=== PATIENT | female | born 1955 | race Caucasian/White ===

== ENCOUNTER 2019-08-07 12:47 | Inpatient (IN) ==
[2019-08-07] MEDS ORDERED: HYDROmorphone INJ 0.5 MG/0.5 ML SYR IV STA (13:51)
[2019-08-07] MEDS ORDERED: ONDANSETRON INJ 2 MG/ML 2 ML VIAL IV STA (13:51)
[2019-08-07] MEDS ORDERED: FAMOTIDINE 20MG/5ML IV PUSH IV STA (13:51)
[2019-08-07] MEDS ORDERED: SODIUM CHLORIDE 0.9% 1000ML 1,000 ML IV SCH (14:00)
[2019-08-07 14:27] LABS: Basophils # (auto) 0.02 K/uL (0-0.2); Basophils % (auto) 0.2 %; Eosinophils # (auto) 0.06 K/uL (0-0.5); Eosinophils % (auto) 0.5 %; Hematocrit (blood only) 38.8 % (37-47); Hemoglobin 13.3 g/dL (12.0-16.0); Immature Granulocytes # (auto) 0.02 K/uL (0.00-0.02); Immature Granulocytes % (auto) 0.2 %; Lymphocytes # (auto) 0.72 K/uL (1.2-3.4); Lymphocytes % (auto) 6.5 %; Mean Corpuscular Hemoglobin 28.9 pg (25-34); Mean Corpuscular Hgb Conc 34.3 g/dL (32-36); Mean Corpuscular Volume 84.2 fL (80-100); Mean Platelet Volume 10.6 fL (7.4-10.4); Monocytes % (auto) 6.3 %; Neutrophils % (auto) 86.3 %; Platelet Count 285 K/uL (130-400); RDW Coefficient of Variation 12.9 % (11.5-14.5); RDW Standard Deviation 39.2 fL (36.4-46.3); Red Blood Count 4.61 M/uL (4.2-5.4); White Blood Count 11.12 K/uL (4.8-10.8)
[2019-08-07 14:54] LABS: Albumin Level 4.2 gm/dl (3.4-5.0); Calcium 9.1 mg/dl (8.5-10.1)
[2019-08-07 14:55] LABS: BUN Creatinine Ratio 10.5 (10-20); Creatinine Clr Calc Pharmacy 40.5 ml/min; Est GFR (African American) 29.8; Est GFR (Non-African American) 25.7
[2019-08-07] MEDS ORDERED: METOCLOPRAMIDE HCL INJ 5 MG/ML 2 ML VIAL IV ONE ×2 (14:57→16:31)
[2019-08-07 14:58] LABS: Albumin Globulin Ratio 1.3 (0.9-2); Bilirubin,Total 1.1 mg/dl (0.2-1); Globulin 3.2 gm/dl (2.5-4.0); Total Protein 7.4 gm/dl (6.4-8.2)
[2019-08-07 15:37] LABS: Appearance Urine Clear (Clear); Bilirubin Urine Negative (Negative); Blood Urine Negative (Negative); Color Urine Yellow; Glucose Urine UA Negative (Negative); Ketones Urine Negative (Negative); Leukocyte Esterase Urine Negative (Negative); Nitrite Urine Negative (Negative); Protein Urine Negative (Negative); Urobilinogen Urine Negative (Negative); pH Urine 5.5 (4.5-7.5)
--- NOTE | 2019-08-07 15:58 | CT Scan Report ---
CT abd pelvis wo con CT DOSE: 2056.08 mGy.cm HISTORY: Flank pain. Nausea. rlq pain, n/v TECHNIQUE: Multiaxial CT images of the abdomen and pelvis were performed without contrast. A dose lo wering technique was utilized adhering to the principles of ALARA. COMPARISON STUDY: 08/03/2019 FINDINGS: The lung bases are clear. Liver spleen and pancreas are unremarkable. Moderate right renal hydronephrosis and hydroureter. Left kidney is negative for hydronephrosis. Mild right hydroureter extending to the right ureteral pelvic junction. There appears to be a very po hugh seen 1.5 mm calculus at the right ureteral vesicle junction. The bowel pattern overall is nonobstructive. IMPRESSION: 1. Moderate right renal hydroureteronephrosis. 2. This appears to be secondary to a very poorly defined 1.5 mm right ureterovesical junction calculu s. 3. Study is otherwise unremarkable. The above report was generated using voice recognition software. It may contain grammatical, syntax or spelling errors. Electronically signed by: Ben Tyler M.D. 08/07/2019 3:56 PM
[2019-08-07] MEDS ORDERED: ACETAMINOPHEN 500 MG TAB PO STA (16:11)
[2019-08-07] MEDS ORDERED: ACETAMINOPHEN 1,000 MG/100 ML VIAL IV STA (16:31)
--- NOTE | 2019-08-07 16:54 | History & Physical Report ---
Date of Service August 07, 2019 Assessment & Plan (1) Right lower quadrant abdominal pain: Unclear etiology however, pain appears to be consistent with nephrolithiasis. Four days ago, the CT revealed a dilated right renal pelvis and trace surrounding inflammatory change possibly consistent with the passage of a calculus. Repeat CT today reveals evidence of a calculus again on the right side. Urinary tract infection has been ruled out with culture. She is feeling better with IV fluids. Continue tamsulosin. Urology consult. Continue supportive care. Keep n.p.o. for now until nausea and vomiting has subsided. (2) Kidney stone on right side: Plan as above. (3) Vomiting: Possibly secondary to uncontrolled pain. Other etiologies include but are not limited to an acute gastroenteritis, peptic ulcer disease. Of note, she did mention an episode of reddish liquid in her vomitus today. However, this was after drinking cranberry juice. She is hemodynamically stable with a stable H&H. She has risk factors for PUD and that she uses chronic naproxen twice daily. Will hold naproxen at this time, and hold any blood thinners including DVT prophylaxis. Will monitor for persistent red liquid in the vomitus and test with FOBT if appropriate at which point we can consider gastroenterology consult. For now, would continue supportive care as I do not believe this is consistent with hematemesis. (4) LENCHO (acute kidney injury): LENCHO likely secondary to prerenal azotemia in the setting of poor p.o. intake. Continue IV fluids and repeat BMP in the a.m. (5) Depression: Continue home citalopram. (6) Lupus: Recent flare reported. Patient states the flare includes skin rash and that she has had this for the past 3 weeks. She reports treating it with topical agents and states this is better. 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 PCP manages lupus. (7) DVT prophylaxis: SCDs-reconsider chemoprophylaxis once hematemesis ruled out completely Full code Dispo-pending resolution of intractable vomiting and improve pain control. Pina Carpio DO [facility] Hospitalist History of Present Illness Chief Complaint: abdominal pain Primary Care Provider: Diogenes Wang MD 64-year-old female presents with severe right lower quadrant pain that has been present for the past 4 to 5 days, associated with chills and of variable intensity. She was initially seen in the ER on 08/03 and thought to have a UTI. She was sent home on a course of Keflex. However the culture was negative and she was back in the ER on 08/05. At that time she was having intractable vomiting unable to keep any food or medication down in addition to persistent pain. She received 1 mg of IV Dilaudid and Zofran, feeling well enough to go home. She was sent home with Luz. She returns again this evening with persistent abdominal pain, vomiting and nausea. She has been unable to taking any food or water and is now becoming generally weak. She reports her last meal was Tuesday (5 days ago) and that her last BM was soft and formed and was this morning. She reported drinking cranberry juice earlier today and subsequently vomiting a dark red liquid a few hours later. She has had no vomiting since being on the floor. She feels the vomiting is in response to pain that is uncontrolled. In the ER she received Dilaudid 0.5 mg IV, famotidine 20 mg IV, Zofran 4 mg IV, 1 L of normal saline, Reglan 5 mg IV x2 doses. A repeat CT of h er abdomen pelvis revealed no evidence of obstruction with moderate right renal hydroureteronephrosis likely secondary to a poorly defined 1.5 mm right ureterovesical junction calculus. The clinical picture fits a kidney stone and she was admitted to the floor placed on normal saline at 150 cc an hour, started on tamsulosin and given additional antiemetics and pain medication. She is feeling better at this point. However, she is still concerned about trying food. Work-up incidentally revealed a normal lipase and normal LFTs. She reports her pain is approximately 4 out of 10. There is no radiation of the pain and there are no clear precipitating or alleviating factors aside from medications that are IV. Incidentally she does report having lupus and suffering a recent lupus flare for the last 3 weeks. Her lupus flares are skin rashes on her arms. She reports managing these with naproxen and skin lotions and feels that her current rash is improved. She also reports evidence of gross hematuria a couple of months ago for which she was referred to urology but has not been able to establish care. Allergies Allergy/AdvReac Type Severity Reaction Status Date / Time cat dander Allergy Intermediate SNEEZE, Verified 08/07/19 15:20 PUFFY EYES meperidine Allergy Intermediate LOOPY, Verified 08/07/19 15:20 VOMITING Home Medications Home Medications Medication Instructions Recorded Confirmed Type dicyclomine 20 mg PO TID #14 tab 08/03/19 08/07/19 Rx naproxen 500 mg PO BID PRN 08/03/19 08/07/19 History ondansetron HCl [Zofran] 4 mg PO Q6H PRN #14 tab 08/06/19 08/07/19 Rx citalopram 20 mg PO DAILY 08/07/19 08/07/19 History Past Med/Surg History Medical History Right lower quadrant abdominal pain (Acute) History of hysterectomy Acute low back pain (Acute) Right upper quadrant abdominal pain (Acute) Lupus Surgical History S/P HUEY-BSO History of appendectomy Family History Brother COPD (chronic obstructive pulmonary disease) Mother Diabetes Other No significant family history Social History Preferred Language: [place]uran Communication Ability: Effective Heel Varnisher Required: No Beliefs That Will Affect Care: None Current Living Situation: Family Other Information That Helps Us Care for You: No Feels Safe at Home: Yes Safety Concerns: Feels Safe At This Time Smoking Status: Never smoker Do You Dip or Chew Tobacco: No ; Second Hand Exposure: No ; Tobacco Cessation Education Requested by Patient: No Hx Alcohol Use: No Hx Substance Use: No Review of Systems Review of Systems: At least 10 systems were reviewed and negative except as indicated on HPI above. Physical Exam Physical Exam: CONSTITUTIONAL: obese, vitals as above, generally well- appearing EYES: normal conjunctivae, no scleral icterus ENT: MMM RESPIRATORY: clear to auscultation bilaterally, no crackles, rales or wheezes, normal respiratory effort CARDIOVASCULAR: regular rate and rhythm, 3/6 SAMM across precordium, no JVD, no peripheral edema GASTROINTESTINAL: normal bowel sounds, soft, nondistended, TTP in RLQ>RUQ. No CVA tenderness. MUSCULOSKELETAL: strength 5/5 throughout, head is normocephalic and atraumatic SKIN: warm and dry, +scaly erythematous rash on left distal arm on the extensor surface. NEUROLOGIC: No facial palsy, no dysarthria. CN 2-12 grossly intact, normal cognition, normal speech, no gross deficits. PSYCHIATRIC: alert cooperative and oriented to person, place and time. Results & Data Vital Signs (Past 12 Hours) Vital Signs Temp Pulse Pulse Resp BP BP Pulse Ox 08/07/19 16:24 66 19 168/85 H 97 08/07/19 14:48 67 18 188/101 H 98 08/07/19 14:28 98 08/07/19 12:50 36.8 C 84 20 174/86 H 97 Laboratory Results Short CBC 08/07/19 Range/Units 14:16 WBC 11.12 H (4.8-10.8) K/uL Hgb 13.3 (12.0-16.0) g/dL Hct 38.8 (37-47) % Plt Count 285 (130-400) K/uL BMP 08/07/19 14:16 Sodium 138 Potassium 4.0 Chloride 104 Carbon Dioxide 25 BUN 21 H Creatinine 1.98 H D Glucose 112 H Calcium 9.1 Liver Function 08/07/19 Range/Units 14:16 Total Bilirubin 1.1 H D (0.2-1) mg/dl AST 14 L (15-37) U/L ALT 12 (12-78) U/L Alkaline Phosphatase 102 (45-117) U/L Albumin 4.2 (3.4-5.0) gm/dl Urine 08/07/19 Range/Units 14:19 Urine Color Yellow Urine Appearance Clear (Clear) Urine pH 5.5 (4.5-7.5) Ur Specific Jacobson 1.020 (1.000-1.030) Urine Protein Negative (Negative) Urine Glucose (UA) Negative (Negative) Diagnostic Findings CT abd pelvis wo con CT DOSE: 2056.08 mGy.cm HISTORY: Flank pain. Nausea. rlq pain, n/v TECHNIQUE: Multiaxial CT images of the abdomen and pelvis were performed without contrast. A dose lowering technique was utilized adhering to the principles of ALARA. COMPARISON STUDY: 08/03/2019 FINDINGS: The lung bases are clear. Liver spleen and pancreas are unremarkable. Moderate right renal hydronephrosis and hydroureter. Left kidney is negative for hydronephrosis. Mild right hydroureter extending to the right ureteral pelvic junction. There appears to be a very poorly seen 1.5 mm calculus at the right ureteral vesicle junction. The bowel pattern overall is nonobstructive. IMPRESSION: 1. Moderate right renal hydroureteronephrosis. 2. This appears to be secondary to a very poorly defined 1.5 mm right ureterovesical junction calculus. 3. Study is otherwise unremarkable. _ PA CHEST RADIOGRAPH AND UPRIGHT AND SUPINE AP RADIOGRAPHS OF THE ABDOMEN CLINICAL HISTORY: Right lower quadrant abdominal pain. Evaluate for bowel obstruction. COMPARISON STUDY: CT of the abdomen and pelvis August 03, 2019. Chest radiograph June 27, 2011. FINDINGS: Lung volumes are normal. There is no pneumothorax or pleural effusion. Mild cardiomegaly is noted without evidence for pulmonary edema. Linea r left lung opacities suggest atelectasis or scarring. There is no evidence for a bowel obstruction. No urinary calculi are identified. Pelvic calcifications reflect phleboliths. IMPRESSION: 1. No free air or evidence of bowel obstruction. 2. No acute cardiopulmonary findings. Code Status & VTE Plan Code Status full (1) Vomiting Nausea presence: with nausea Vomiting Intractability: non-intractable Vomiting type: unspecified Qualified Code(s): R11.2 - Nausea with vomiting, unspecified
[2019-08-07] MEDS: ONDANSETRON INJ 2 MG/ML 2 ML VIAL IV PRN (18:46)
[2019-08-07] MEDS: SODIUM CHLORIDE 0.9% 1000ML 1,000 ML IV SCH (18:46)
[2019-08-07] MEDS: TAMSULOSIN HCL 0.4 MG CAP PO SCH (20:05)
[2019-08-07] MEDS ORDERED: MoRPHine SULFATE 4 MG/ML 1 ML CARP\\VIAL IV PRN (21:16)
--- NOTE | 2019-08-07 21:18 | Emergency Department Note ---
Entered by Gricelda Paul acting as a scribe for History of Present Illness General Chief complaint: Vomiting Stated complaint: ABD PAIN, VOMITING, NAUSEA History of Present Illness Provider complaint: right lower abdominal pain Onset (ago): day(s) 4 Location: abdomen (lower) and right Pain Consistency: + other (episode) Maximum Pain Intensity: 8 Relieved By: + none Associated symptoms: + denies other symptoms, + nausea/vomiting, + weakness and + other (diarrhea 4 days ago that is now resolved, limited oral intake, has not been able to keep down nausea medication, seen in ED twice and by PCP once in the past 4 days ) The patient is a 64 year old female who presents to the ED with complaints of an episode of right lower abdominal pain that started 4 days ago. The patient state s that she initially had diarrhea 4 days ago, but it has since resolved. The patient notes that she now has nausea, vomiting, generalized weakness and limited oral intake. The patient notes that she has not been able to keep anything down since yesterday, including her nausea medications. The patient states that nothing is relieving her of these symptoms. The patient states that she was seen in the ED twice and by her PCP once in the past 4 days. Home Medications Home Medications Medication Instructions Recorded Confirmed Type cephalexin [Keflex] 500 mg PO BID 5 Days #10 cap 08/03/19 08/07/19 Rx dicyclomine 20 mg PO TID #14 tab 08/03/19 08/07/19 Rx naproxen 500 mg PO BID PRN 08/03/19 08/07/19 History ondansetron HCl [Zofran] 4 mg PO Q6H PRN #14 tab 08/06/19 08/07/19 Rx Allergies Allergy/AdvReac Type Severity Reaction Status Date / Time cat dander Allergy Intermediate SNEEZE, Verified 08/07/19 15:20 PUFFY EYES meperidine Allergy Intermediate LOOPY, Verified 08/07/19 15:20 VOMITING Past Med/Surg History Social History Preferred Language: [place] Communication Ability: Effective Loom Blower Required: No Beliefs That Will Affect Care: None Current Living Situation: Family Other Information That Helps Us Care for You: No Feels Safe at Home: Yes Safety Concerns: Feels Safe At This Time Smoking Status: Never smoker Do You Dip or Chew Tobacco: No ; Second Hand Exposure: No ; Tobacco Cessation Education Requested by Patient: No Hx Alcohol Use: No Hx Substance Use: No Review of Systems See HPI for pertinent positives & negatives. and A total of 10 systems reviewed and were otherwise negative Physical Exam Vital Signs Vital Signs - 24 hr 08/07/19 12:50 08/07/19 14:28 08/07/19 14:48 Temperature 36.8 C Temperature Source Oral Sepsis Recent Fever Within 48 Hours No Sepsis New/Unexplained Change in Mental Status No Sepsis Action Taken by Nursing No Action Required Pulse Rate 84 Pulse Rate [Apical] 67 Respiratory Rate 20 18 Respiratory Effort / Characteristics Blood Pressure 174/86 H Blood Pressure [Left Arm] 188/101 H Blood Pressure Mean 115 Blood Pressure Mean [Left Arm] 130 Blood Pressure Position [Left Arm] Pulse Oximetry 97 98 98 Oxygen Delivery Method Room Air Room Air 08/07/19 16:24 Temperature Temperature Source Sepsis Recent Fever Within 48 Hours Sepsis New/Unexplained Change in Mental Status Sepsis Action Taken by Nursing Pulse Rate Pulse Rate [Apical] 66 Respiratory Rate 19 Respiratory Effort / Characteristics Non-Labored Spontaneous Blood Pressure Blood Pressure [Left Arm] 168/85 H Blood Pressure Mean Blood Pressure Mean [Left Arm] 112 Blood Pressure Position [Left Arm] Lying Pulse Oximetry 97 Oxygen Delivery Method Room Air GENERAL: Awake, alert, weak and fatigued-appearing HENT: Normocephalic, atraumatic. Oropharynx unremarkable. EYES: Normal conjunctiva. Sclera non-icteric. NECK: Supple. No nuchal rigidity. RESPIRATORY: Clear to auscultation. No wheezes. Normal respiratory effort. CARDIAC: Normal rate. Normal rhythm. Extremities warm and well perfused. GI: Soft, non-distended. RLQ tenderness to palpation. No rebound or guarding. RECTAL: Deferred. MUSCULOSKELETAL: Atraumatic. Chest examination reveals no tenderness. LOWER EXTREMITIES: Calves are equal size bilaterally and non-tender. No edema NEURO: Normal sensorium. No sensory or motor deficits noted. No facial droop. SKIN: Warm and dry. No rash or jaundice noted. Course 1355: Past medical records reviewed. The patient was evaluated in room C4. A complete history and physical exam was performed. 1603: I updated the patient of the test results and plan for admission. She verbally agrees and understands. 1609: I discussed the patient case with SCOOBY Le. She will accept the patient for Dr. Irene Caceres Hospitalist. They will evaluate the patient for further management. Consultations Consultation #1: I discussed the patient case with SCOOBY Le. She will accept the patient for Dr. Irene Caceres Hospitalist. They will evaluate the patient for further management. Time: 16:09 Administered Medications Sodium Chloride (Nss 1000ml) 1,000 mls @ 150 mls/hr IV .Q6H40M ELLA Stop: 09/06/19 18:00 Last Admin: 08/07/19 18:46 Dose: 150 mls/hr Documented by: [id number] Ondansetron HCl (Zofran) 4 mg IV Q6H PRN PRN Reason: Nausea Stop: 09/06/19 18:00 Last Admin: 08/07/19 18:46 Dose: 4 mg Documented by: [id number] Tamsulosin HCl (Flomax) 0.4 mg PO HS ELLA Stop: 09/06/19 20:59 Last Admin: 08/07/19 20:05 Dose: 0.4 mg Documented by: [id number] Discontinued Medications Acetaminophen (Tylenol) 1,000 mg PO NOW STA Stop: 08/07/19 16:12 Last Admin: 08/07/19 16:28 Dose: Not Given Documented by: [id number] Famotidine (Pepcid 20mg Iv Push) 20 mg IV ONE STA Stop: 08/07/19 13:52 Last Admin: 08/07/19 14:23 Dose: 20 mg Documented by: [id number] Hydromorphone HCl (Dilaudid) 0.5 mg IV NOW STA Stop: 08/07/19 13:52 Last Admin: 08/07/19 14:23 Dose: 0.5 mg Documented by: [id number] Sodium Chloride (Nss 1000ml) 1,000 mls @ 999 mls/hr IV .Q1H1M ELLA Stop: 08/07/19 15:00 Last Infusion: 08/07/19 15:42 Dose: 0 mls/hr Documented by: [id number] Admin: 08/07/19 14:23 Dose: 999 mls/hr Documented by: [id number] Acetaminophen (Ofirmev) 1,000 mg in 100 mls @ 400 mls/hr IV NOW STA Stop: 08/07/19 16:45 Last Infusion: 08/07/19 17:21 Dose: 0 mls/hr Documented by: [id number] Admin: 08/07/19 16:35 Dose: 400 mls/hr Documented by: [id number] Metoclopramide HCl (Reglan) 5 mg IV ONE ONE Stop: 08/07/19 14:58 Last Admin: 08/07/19 15:02 Dose: 5 mg Documented by: [id number] Metoclopramide HCl (Reglan) 5 mg IV ONE ONE Stop: 08/07/19 16:32 Last Admin: 08/07/19 16:35 Dose: 5 mg Documented by: [id number] Ondansetron HCl (Zofran) 4 mg IV NOW STA Stop: 08/07/19 13:52 Last Admin: 08/07/19 14:23 Dose: 4 mg Documented by: [id number] Medical Decision Making Differential Diagnosis Differential diagnosis: Etiologies such as biliary colic, cholecystitis, hepatitis, perihepatitis, pancreatitis, cardiac disease, pancreatitis, gastritis, peptic ulcer disease, appendicitis, ovarian cyst, ovarian torsion, ectopic , pelvic inflammatory disease, cystitis, diverticulitis, mesenteric ischemia, inflammatory bowel disease, ileus, bowel obstruction, aortic pathology, sh ingles, as well as others were considered. Medical Records Attestation: I reviewed the patient's medical records. Home Medications Current Medication List: was personally reviewed by me Laboratory Data Attestation: I reviewed the patient's lab results. Result diagrams: 08/07/19 14:16 08/07/19 14:16 Lab Results 08/07/19 08/07/19 08/07/19 Range/Units 14:16 14:16 14:16 WBC 11.12 H (4.8-10.8) K/uL RBC 4.61 (4.2-5.4) M/uL Hgb 13.3 (12.0-16.0) g/dL Hct 38.8 (37-47) % MCV 84.2 (80-100) fL MCH 28.9 (25-34) pg MCHC 34.3 (32-36) g/dL RDW Std Deviation 39.2 (36.4-46.3) fL RDW Coeff of Chhaya 12.9 (11.5-14.5) % Plt Count 285 (130-400) K/uL MPV 10.6 H (7.4-10.4) fL Immature Gran % (Auto) 0.2 % Neut % (Auto) 86.3 % Lymph % (Auto) 6.5 % [place] % (Auto) 6.3 % Eos % (Auto) 0.5 % Baso % (Auto) 0.2 % Immature Gran # (Auto) 0.02 (0.00-0.02) K/uL Neut # (Auto) 9.60 H (1.4-6.5) K/uL Lymph # (Auto) 0.72 L (1.2-3.4) K/uL [place] # (Auto) 0.70 H (0.11-0.59) K/uL Eos # (Auto) 0.06 (0-0.5) K/uL Baso # (Auto) 0.02 (0-0.2) K/uL Sodium 138 (136-145) mmol/L Potassium 4.0 (3.5-5.1) mmol/L Chloride 104 (98-107) mmol/L Carbon Dioxide 25 (21-32) mmol/L Anion Gap 9.0 (3-11) BUN 21 H (7-18) mg/dl Creatinine 1.98 H D (0.6-1.2) mg/dl Est Cr Clr Drug Dosing 40.5 ml/min Est GFR ( Amer) 29.8 Est GFR (Non-Af Amer) 25.7 BUN/Creatinine Ratio 10.5 (10-20) Glucose 112 H (70-99) mg/dl Calcium 9.1 (8.5-10.1) mg/dl Magnesium 2.0 Cancelled (1.8-2.4) mg/dl Total Bilirubin 1.1 H D (0.2-1) mg/dl AST 14 L (15-37) U/L ALT 12 (12-78) U/L Alkaline Phosphatase 102 (45-117) U/L Total Protein 7.4 (6.4-8.2) gm/dl Albumin 4.2 (3.4-5.0) gm/dl Globulin 3.2 (2.5-4.0) gm/dl Albumin/Globulin Ratio 1.3 (0.9-2) Lipase 61 L (73-393) U/L Urine Color Urine Appearance (Clear) Urine pH (4.5-7.5) Ur Specific [place] (1.000-1.030) Urine Protein (Negative) Urine Glucose (UA) (Negative) Urine Ketones (Negative) Urine Blood (Negative) Urine Nitrite (Negative) Urine Bilirubin (Negative) Urine Urobilinogen (Negative) Ur Leukocyte Esterase (Negative) 08/07/19 Range/Units 14:19 WBC (4.8-10.8) K/uL RBC (4.2-5.4) M/uL Hgb (12.0-16.0) g/dL Hct (37-47) % MCV (80-100) fL MCH (25-34) pg MCHC (32-36) g/dL RDW Std Deviation (36.4-46.3) fL RDW Coeff of Chhaya (11.5-14.5) % Plt Count (130-400) K/uL MPV (7.4-10.4) fL Immature Gran % (Auto) % Neut % (Auto) % Lymph % (Auto) % [place] % (Auto) % Eos % (Auto) % Baso % (Auto) % Immature Gran # (Auto) (0.00-0.02) K/uL Neut # (Auto) (1.4-6.5) K/uL Lymph # (Auto) (1.2-3.4) K/uL [place] # (Auto) (0.11-0.59) K/uL Eos # (Auto) (0-0.5) K/uL Baso # (Auto) (0-0.2) K/uL Sodium (136-145) mmol/L Potassium (3.5-5.1) mmol/L Chloride (98-107) mmol/L Carbon Dioxide (21-32) mmol/L Anion Gap (3-11) BUN (7-18) mg/dl Creatinine (0.6-1.2) mg/dl Est Cr Clr Drug Dosing ml/min Est GFR ( Amer) Est GFR (Non-Af Amer) BUN/Creatinine Ratio (10-20) Glucose (70-99) mg/dl Calcium (8.5-10.1) mg/dl Magnesium (1.8-2.4) mg/dl Total Bilirubin (0.2-1) mg/dl AST (15-37) U/L ALT (12-78) U/L Alkaline Phosphatase (45-117) U/L Total Protein (6.4-8.2) gm/dl Albumin (3.4-5.0) gm/dl Globulin (2.5-4.0) gm/dl Albumin/Globulin Ratio (0.9-2) Lipase (73-393) U/L Urine Color Yellow Urine Appearance Clear (Clear) Urine pH 5.5 (4.5-7.5) Ur Specific [place] 1.020 (1.000-1.030) Urine Protein Negative (Negative) Urine Glucose (UA) Negative (Negative) Urine Ketones Negative (Negative) Urine Blood Negative (Negative) Urine Nitrite Negative (Negative) Urine Bilirubin Negative (Negative) Urine Urobilinogen Negative (Negative) Ur Leukocyte Esterase Negative (Negative) Imaging Data Radiologist's Impression: Radiology results as stated below per my review and the radiologist's interpretation: CT abd pelvis wo con CT DOSE: 2056.08 mGy.cm HISTORY: Flank pain. Nausea. rlq pain, n/v TECHNIQUE: Multiaxial CT images of the abdomen and pelvis were performed without contrast. A dose lowering technique was utilized adhering to the principles of ALARA. COMPARISON STUDY: 08/03/2019 FINDINGS: The lung bases are clear. Liver spleen and pancreas are unremarkable. Moderate right renal hydronephrosis and hydroureter. Left kidney is negative for hydronephrosis. Mild right hydroureter extending to the right ureteral pelvic junction. There appears to be a very poorly seen 1.5 mm calculus at the right ureteral vesicle junction. The bowel pattern overall is nonobstructive. IMPRESSION: 1. Moderate right renal hydroureteronephrosis. 2. This appears to be secondary to a very poorly defined 1.5 mm right ureterove sical junction calculus. 3. Study is otherwise unremarkable. The above report was generated using voice recognition software. It may contain grammatical, syntax or spelling errors. Electronically signed by: Ben Tyler M.D. 08/07/2019 3:56 PM Blood Pressure Blood Pressure Findings: Elevated blood pressure Blood Pressure Disposition: further management by hospitalist CARLI Narrative Patient is a 64-year-old female presenting today with complaints of severe abdominal pain with nausea and vomiting. States limited oral intake. Was seen here twice over the last several days with imaging and labs without clear etiology. Discussed with her primary doctor referred her here today as they were concerned for possible dehydration. Upon arrival the patient is afebrile noted to be hypertensive but not tachycardic. Review of recent visits show mixed alice urine culture and CT scan from several days ago without real significant pathology. Provided antiemetic control, some pain control, and IV fluids. Labs were checked to look for signs of dehydration/renal insufficiency, electrolyte abnormality, hepatitis, or pancreatitis. Given persistence of her problems discussed with her proceed with repeat imaging to evaluate for any change in the intra-abdominal pathology such as colitis, diverticulitis, or other pathology. Repeat urinalysis sent. White blood cell count of 11 appears fairly unchanged from 2 days ago. Patient does have worsening of her renal func tion with new renal insufficiency noted likely from her decreased intake. Urinalysis is negative. A noncontrast CT scan was thus completed showing moderate right-sided hydronephrosis and a pinpoint 1.5 mm right-sided kidney stone. Does explain her symptoms. Did require several doses of antiemetic for nausea control and still appears quite fatigued and with the concern for dehydration some renal insufficiency discussed with her and then the [facility] for further care in the hospital. Impression & Plan Kidney stone on right side, LENCHO (acute kidney injury) Discharge Plan Visit Data *Final* Discharge Date/Time: 08/07/19 17:25 Chief Complaint: Vomiting Stated Complaint: ABD PAIN, VOMITING, NAUSEA ED Provider: Cheko Anderson Discharge Problem: Kidney stone on right side, LENCHO (acute kidney injury) Patient Disposition: Admitted As Inpatient Discharge Instructions Interventions: ED Discharge Assessment Last Done: 08/07/19 17:25 The ericaibgaro's documentation has been prepared under my direction and personally reviewed by me in its entirety. I confirm that the note above accurately reflects all work, treatment, procedures, and medical decision making performed by me.
[2019-08-07] MEDS: OXYCODONE/APAP 7.5/325MG TAB PO PRN (23:22)
[2019-08-08] MEDS: SODIUM CHLORIDE 0.9% 1000ML 1,000 ML IV SCH ×4 (01:48→21:02)
[2019-08-08] MEDS: ACETAMINOPHEN 325 MG TAB PO PRN ×2 (06:06→17:21)
[2019-08-08 06:15] LABS: Basophils # (auto) 0.02 K/uL (0-0.2); Basophils % (auto) 0.3 %; Eosinophils # (auto) 0.17 K/uL (0-0.5); Eosinophils % (auto) 2.2 %; Immature Granulocytes # (auto) 0.02 K/uL (0.00-0.02); Immature Granulocytes % (auto) 0.3 %; Lymphocytes # (auto) 1.02 K/uL (1.2-3.4); Lymphocytes % (auto) 13.4 %; Mean Corpuscular Hemoglobin 28.9 pg (25-34); Mean Corpuscular Hgb Conc 33.3 g/dL (32-36); Mean Corpuscular Volume 86.6 fL (80-100); Mean Platelet Volume 10.4 fL (7.4-10.4); Monocytes # (auto) 0.83 K/uL (0.11-0.59); Monocytes % (auto) 10.9 %; Neutrophils # (auto) 5.56 K/uL (1.4-6.5); Neutrophils % (auto) 72.9 %; Platelet Count 239 K/uL (130-400); RDW Coefficient of Variation 13.3 % (11.5-14.5); Red Blood Count 3.81 M/uL (4.2-5.4); White Blood Count 7.62 K/uL (4.8-10.8)
[2019-08-08 06:48] LABS: BUN Creatinine Ratio 9.7 (10-20); Calcium 8.3 mg/dl (8.5-10.1); Creatinine Clr Calc Pharmacy 43.8 ml/min; Est GFR (African American) 32.7; Est GFR (Non-African American) 28.3; Potassium 3.9 mmol/L (3.5-5.1)
[2019-08-08] MEDS: ONDANSETRON INJ 2 MG/ML 2 ML VIAL IV PRN ×2 (07:14→18:43)
[2019-08-08] MEDS ORDERED: PHENAZOPYRIDINE HCL 100 MG TAB PO PRN (08:49)
--- NOTE | 2019-08-08 08:50 | Hospitalist Progress Note ---
Date of Service August 08, 2019 Assessment & Plan (1) Right lower quadrant abdominal pain: (2) Kidney stone on right side: Suspect RLQ secondary to nephrolithiasis. H/O CT abd/pelvis on 08/03/19 revealed a dilated right renal pelvis and trace surrounding inflammatory change possibly consistent with pyelonephritis vs recently passed calculus. Urine culture negative. 08/07/19 CT abd/pelvis: Moderate right renal hydroureteronephrosis. This appears to be secondary to a very poorly defined 1.5 mm right ureterovesical junction calculus. Overnight pt nausea and pain controlled. This am reported hematuria. No dysuria, No fevers. No leukocytosis. -IVF -Tamsulosin -Pyridium prn -NPO for now -Strain urine -Oxycodone prn pain -Urology consult -CBC, BMP in am (3) Vomiting: Possibly secondary to uncontrolled pain vs gastroenteritis, peptic ulcer disease. 08/07/19 had reported episode of reddish liquid in her vomitus after drinking cranberry juice No further vomiting since admission -Monitor -Hold NSAIDs -If hematemesis consider GI consult (4) LENCHO (acute kidney injury): LENCHO likely secondary to poor oral. intake. Cr: 1.83 from 1.98 on 08/07/19. Cr: 1.27 on 08/05/19 -IVF -Avoid NSAIDs and other nephrotoxic agents when possible -Monitor renal functions (5) Depression: -Continue home citalopram (6) Lupus: Recent flare reported 3 weeks ago including skin rash. Using topical agents with improvement. Does not see part time receptionist -Monitor (7) DVT prophylaxis: SCDs for now in case of surgical procedure and with questionable episode of red color emesis yesterday Pt was seen and care coordinated with Dr Lopez. See addendum Supervising Physician Co-Signing Physician Notes Patient is seen and examined at bedside. Complains of right lower quadrant abdominal pain. Also states having hematuria but denies any dysuria. Offers no other complaints. On exam patient is morbidly obese, no apparent distress, normocephalic atraumatic, lungs are clear to auscultation, S1-S2, no murmur, abdomen soft, right lower quadrant tenderness, no guarding or rigidity, grossly nonfocal neurological deficits, trace pedal edema. Patient is admitted for management of right hydroureteronephrosis, right ureteral stone and LENCHO. Continue IV fluids, strain urine, pain control, Flomax. Appreciate neurology input. Plan for possible ureteral stent tomorrow. Keep her n.p.o. after midnight. Monitor renal function and avoid nephrotoxic agents as able. I personally reviewed the record. Patient is interviewed and examined at bedside. Patient's care is coordinated with Nely Johnson PA-C. Please refer to the documentation above for details of patient's presentation and for discussion of other issues. Subjective Pt seen and examined. Sitting up in bed. Reports right lower abdomen pain controlled with oral pain meds. Still with nausea however has improved with Zofran. No further vomiting. Urinating without dysuria, urinary hesitancy. This morning had hematuria. No BM yet. Having some frontal HAMMONDS this morning. No vision changes, photophobia, phonophobia, paresthesias. Reports gets HAMMONDS when under stress and this feels like prior HAMMONDS. Denies fever/chills, diaphoresis, dizziness, neck pain, CP, SOB, orthopnea, palpitations, weakness, extremity weakness, extremity edema, rashes. Review of Systems Review of Systems: All systems reviewed & are unremarkable except as noted in HPI & below Physical Exam Physical Exam: General: no acute distress, obese Head: normocephalic, atraumatic Eyes: conjunctiva non-injected, anicteric ENT: normal inspection external ears, nose, mucous membranes moist Neck: supple, trachea midline Lungs: clear, no respiratory distress, no wheezing/rhonchi/rales CV: RRR, systolic murmur, no ptting pretibial edema Abd: normal BS, soft, +tenderness to palpation RLQ without rebound Ext: no cyanosis, no calf tenderness Neuro: A&O x 3, no focal deficits noted, normal affect Skin: warm, dry Results & Data Vital Signs (Past 12 Hours) Vital Signs Temp Pulse Resp BP Pulse Ox 08/08/19 07:53 36.7 C 81 16 98/61 L 97 08/07/19 23:12 36.9 C 73 16 129/78 95 Laboratory Results Short CBC 08/07/19 08/08/19 Range/Units 14:16 05:37 WBC 11.12 H 7.62 (4.8-10.8) K/uL Hgb 13.3 11.0 L (12.0-16.0) g/dL Hct 38.8 33.0 L (37-47) % Plt Count 285 239 (130-400) K/uL BMP 08/07/19 08/08/19 14:16 05:37 Sodium 138 140 Potassium 4.0 3.9 Chloride 104 109 H Carbon Dioxide 25 25 BUN 21 H 18 Creatinine 1.98 H D 1.83 H Glucose 112 H 103 H Calcium 9.1 8.3 L Liver Function 08/07/19 Range/Units 14:16 Total Bilirubin 1.1 H D (0.2-1) mg/dl AST 14 L (15-37) U/L ALT 12 (12-78) U/L Alkaline Phosphatase 102 (45-117) U/L Albumin 4.2 (3.4-5.0) gm/dl Urine 08/07/19 Range/Units 14:19 Urine Color Yellow Urine Appearance Clear (Clear) Urine pH 5.5 (4.5-7.5) Ur Specific [place] 1.020 (1.000-1.030) Urine Protein Negative (Negative) Urine Glucose (UA) Negative (Negative) (1) Vomiting Nausea presence: with nausea Vomiting Intractability: non-intractable Vomiting type: unspecified Qualified Code(s): R11.2 - Nausea with vomiting, unspecified
[2019-08-08] MEDS: CITALOPRAM 20 MG TAB PO SCH (09:31)
[2019-08-08] MEDS: PROMETHAZINE HCL 12.5 MG in SODIUM CHLORIDE 0.9% 50 ML IV PRN ×2 (13:02→21:03)
--- NOTE | 2019-08-08 13:10 | Urology Consultation ---
Date of Consultation August 08, 2019 Assessment & Plan (1) LENCHO (acute kidney injury): Right hydronephrosis, small distal right ureteral stone vs. not, LENCHO, vomiting. Imaging reviewed with Dr. Ann who advised NPO after midnight for possible stent tomorrow. Supportive care per primary team. Please contact our service if fever develops or patient declines for urgent stent placement. Will continue to follow. (2) Right lower quadrant abdominal pain: (3) Hydronephrosis of right kidney: History of Present Illness Attending Physician: Lobo Lopez MD History of Present Illness 64 YO female with right hydronephrosis, renal colic. Patient reports abdominal pain, associated nausea/vomiting and hematuria bringing her to the ER on 08/03. CT scan suggestive of pyelonephritis vs. recent stone passage. She was discharged with supportive medication. Unfortunately returned to the ER x 2 for ongoing pain, and was admitted last night. Her original UC&S demonstrates contamination. Repeat CT scan was completed and demonstrates persisting right hydronephrosis, questionable stone vs. not in her distal right ureter. Unfortunately her discomfort, nausea is persisting. No fevers/chills. Voiding spontaneously with intermittent hematuria. She has never seen a urologist. Baseline urinary pattern is not bothersome. Allergies Allergy/AdvReac Type Severity Reaction Status Date / Time cat dander Allergy Intermediate SNEEZE, Verified 08/07/19 15:20 PUFFY EYES meperidine Allergy Intermediate LOOPY, Verified 08/07/19 15:20 VOMITING Home Medications Home Medications Medication Instructions Recorded Confirmed Type dicyclomine 20 mg PO TID #14 tab 08/03/19 08/07/19 Rx naproxen 500 mg PO BID PRN 08/03/19 08/07/19 History ondansetron HCl [Zofran] 4 mg PO Q6H PRN #14 tab 08/06/19 08/07/19 Rx citalopram 20 mg PO DAILY 08/07/19 08/07/19 History Patient History Medical History Right lower quadrant abdominal pain (Acute) History of hysterectomy Acute low back pain (Acute) Right upper quadrant abdominal pain (Acute) Lupus Surgical History S/P HUEY-BSO History of appendectomy Family History Brother COPD (chronic obstructive pulmonary disease) Mother Diabetes Other No significant family history Social History Preferred Language: Icelandic Communication Ability: Effective Catering Cook Required: No Beliefs That Will Affect Care: None Current Living Situation: Family Other Information That Helps Us Care for You: No Feels Safe at Home: Yes Safety Concerns: Feels Safe At This Time Smoking Status: Never smoker Do You Dip or Chew Tobacco: No ; Second Hand Exposure: No ; Tobacco Cessation Education Requested by Patient: No Hx Alcohol Use: No Hx Substance Use: No Review of Systems Review of Systems: Per HPI. Physical Exam Physical Exam: NAD. Resp effort normal. No JVD. Abd nondistended. A&Ox3, appropriate affect. Results & Data Vital Signs (Past 12 Hours) Vital Signs Temp Pulse Resp BP Pulse Ox 08/08/19 07:53 36.7 C 81 16 98/61 L 97 PG Care Time/CCT Total # of Minutes Spent Total Time Spent with Patient: Total time spent is greater than 50% in coordination of care (as documented) at patient's floor/unit and/or counseling patient:
[2019-08-08] MEDS: OXYCODONE/APAP 7.5/325MG TAB PO PRN (22:24)
[2019-08-08] MEDS: TAMSULOSIN HCL 0.4 MG CAP PO SCH (22:25)
[2019-08-09] MEDS: SODIUM CHLORIDE 0.9% 1000ML 1,000 ML IV SCH ×3 (04:13→22:34)
[2019-08-09] MEDS: OXYCODONE/APAP 7.5/325MG TAB PO PRN (05:10)
[2019-08-09 05:48] LABS: Hematocrit (blood only) 33.2 % (37-47); Hemoglobin 11.2 g/dL (12.0-16.0); Mean Corpuscular Hemoglobin 28.9 pg (25-34); Mean Corpuscular Hgb Conc 33.7 g/dL (32-36); Mean Corpuscular Volume 85.6 fL (80-100); Mean Platelet Volume 9.8 fL (7.4-10.4); Platelet Count 252 K/uL (130-400); RDW Coefficient of Variation 13.4 % (11.5-14.5); RDW Standard Deviation 41.8 fL (36.4-46.3); Red Blood Count 3.88 M/uL (4.2-5.4); White Blood Count 6.32 K/uL (4.8-10.8)
[2019-08-09] MEDS: ONDANSETRON INJ 2 MG/ML 2 ML VIAL IV PRN ×3 (06:07→21:35)
[2019-08-09 06:18] LABS: BUN Creatinine Ratio 9.9 (10-20); Calcium 8.3 mg/dl (8.5-10.1); Creatinine Clr Calc Pharmacy 58.1 ml/min; Est GFR (African American) 46.1; Est GFR (Non-African American) 39.7; Potassium 3.7 mmol/L (3.5-5.1)
--- NOTE | 2019-08-09 08:11 | Hospitalist Progress Note ---
Date of Service August 09, 2019 Assessment & Plan (1) Right lower quadrant abdominal pain: (2) Kidney stone on right side: Suspect RLQ secondary to nephrolithiasis. H/O CT abd/pelvis on 08/03/19 revealed a dilated right renal pelvis and trace surrounding inflammatory change possibly consistent with pyelonephritis vs recently passed calculus. Urine culture negative. 08/07/19 CT abd/pelvis: Moderate right renal hydroureteronephrosis. This appears to be secondary to a very poorly defined 1.5 mm right ureterovesical junction calculus. Pt reports did not tolerate liquid diet yesterday and had nausea and vomiting and recurrent RLQ pain. Still with hematuria. Denies dysuria, urinary frequency, urinary retention. No BM, reports passing gas. No fevers. No leukocytosis. -IVF -Tamsulosin -Pyridium prn -NPO for possible procedure today -Strain urine -Oxycodone prn pain -Urology consult, possible stent placement today -CBC, BMP in am (3) Vomiting: Possibly secondary to pain vs gastroenteritis 08/07/19 had reported episode of reddish liquid in her vomitus after drinking cranberry juice No further red vomit or hematemesis -Monitor -Hold NSAIDs -If would have any hematemesis consider GI consult (4) LENCHO (acute kidney injury): LENCHO likely secondary to poor oral intake. Cr: 1.38 today, trending down from 1.98 on 08/07/19. Cr: 1.27 on 08/05/19 -IVF -Avoid NSAIDs and other nephrotoxic agents when possible -Monitor renal functions (5) Depression: -Continue home citalopram (6) Lupus: Recent flare reported 3 weeks ago including skin rash. Using topical agents with improvement. Does not see clinical technician -Monitor (7) DVT prophylaxis: SCDs for now, as planned surgical procedure Pt was seen and care coordinated with Dr Lopez. See addendum Supervising Physician Co-Signing Physician Notes Patient is seen and examined at bedside. Had cystoscopy, right retrograde pyelogram, right ureteral stent placement by Dr. Ann today. Still has some hematuria. Denies any pain. Tolerating diet. On exam patient is morbidly obese, no apparent distress, normocephalic atraumatic, lungs are clear to auscultation, S1-S2, no murmur, abdomen soft, nontender, no guarding or rigidity, grossly nonfocal neurological deficits, trace pedal edema. Patient is admitted for management of right hydroureteronephrosis, right ureteral stone and LENCHO. S/P right total stent placement. Continue IV fluids, strain urine, pain control, Flomax. Appreciate Urology input. Advance diet as tolerated. Creatinine levels improved. Continue to monitor renal function and avoid nephrotoxic agents as able. I personally reviewed the record. Patient is interviewed and examined at bedside. Patient's care is coordinated with Nely Johnson PA-C. Please refer to the documentation above for details of patient's presentation and for discussion of other issues. Subjective Pt seen and examined. Supine in bed. Reports had tried liquid diet yesterday and after had vomiting and increased right lower abdomen pain. Nausea this morning improved some with Zofran. Urinating with hematuria, and denies dysuria, urinary hesitancy. No BM. Reports passing gas. Reports needing new peripheral line placed last night. Denies fever/chills, diaphoresis, HAMMONDS, dizziness, syncope, vision changes, neck pain, CP, SOB, orthopnea, palpitations, cough, sore throat, choking, otalgia, rhinorrhea, paresthesias, weakness, extremity weakness, extremity edema, rashes, urinary symptoms. Review of Systems Review of Systems: All systems reviewed & are unremarkable except as noted in HPI & below Physical Exam Physical Exam: General: no acute distress, obese Head: normocephalic, atraumatic Eyes: conjunctiva non-injected, anicteric ENT: normal inspection external ears, nose, mucous membranes moist Neck: supple, trachea midline Lungs: clear, no respiratory distress, no wheezing/rhonchi/rales CV: RRR, systolic murmur, no pitting pretibial edema Abd: normal BS, soft, +tenderness to palpation RLQ without rebound or guarding Ext: no cyanosis, no calf tenderness Neuro: A&O x 3, no focal deficits noted, normal affect Skin: warm, dry Results & Data Vital Signs (Past 12 Hours) Vital Signs Temp Pulse Resp BP Pulse Ox 08/09/19 07:52 36.5 C 69 16 109/60 94 08/08/19 23:17 36.4 C L 70 16 120/75 93 Laboratory Results Short CBC 08/07/19 08/08/19 08/09/19 Range/Units 14:16 05:37 05:18 WBC 6.32 (4.8-10.8) K/uL Hgb 11.2 L (12.0-16.0) g/dL Hct 33.2 L (37-47) % Plt Count 252 (130-400) K/uL Creatinine 1.98 H D 1.83 H (0.6-1.2) mg/dl 08/09/19 Range/Units 05:18 WBC (4.8-10.8) K/uL Hgb (12.0-16.0) g/dL Hct (37-47) % Plt Count (130-400) K/uL Creatinine 1.38 H D (0.6-1.2) mg/dl BMP 08/09/19 05:18 Sodium 141 Potassium 3.7 Chloride 111 H Carbon Dioxide 24 BUN 14 Creatinine 1.38 H D Glucose 91 Calcium 8.3 L (1) Vomiting Nausea presence: with nausea Vomiting Intractability: non-intractable Vomiting type: unspecified Qualified Code(s): R11.2 - Nausea with vomiting, unspecified
[2019-08-09] MEDS: CITALOPRAM 20 MG TAB PO SCH (08:14)
--- NOTE | 2019-08-09 09:29 | Urology Progress Note ---
Date of Service August 09, 2019 Assessment & Plan (1) Hydronephrosis of right kidney: 64 YO female with right hydronephrosis, questionable distal right ureteral stone, renal colic, LENCHO, hematuria. Given her ongoing pain, vomiting, and hematuria, patient would like to proceed with surgical intervention today. Discussed cystoscopy with right ureteral stent placement. Procedure details, risks, discussed. Consent to be obtained by Dr. Ann. Will cover with intraoperative Cipro. Patient to remain NPO. (2) LENCHO (acute kidney injury): Right hydronephrosis, small distal right ureteral stone vs. not, LENCHO, vomiting. Imaging reviewed with Dr. Ann who advised NPO after midnight for possible stent tomorrow. Supportive care per primary team. Please contact our service if fever develops or patient declines for urgent stent placement. Will continue to follow. (3) Vomiting: Supervising Physician Co-Signing Physician Notes Patient is seen and examined at bedside. Complains of right lower quadrant abdominal pain. Also states having hematuria but denies any dysuria. Offers no other complaints. On exam patient is morbidly obese, no apparent distress, normocephalic atraumatic, lungs are clear to auscultation, S1-S2, no murmur, abdomen soft, right lower quadrant tenderness, no guarding or rigidity, grossly nonfocal neurological deficits, trace pedal edema. Patient is admitted for management of right hydroureteronephrosis, right ureteral stone and LENCHO. Continue IV fluids, strain urine, pain control, Flomax. Appreciate neurology input. Plan for possible ureteral stent tomorrow. Keep her n.p.o. after midnight. Monitor renal function and avoid nephrotoxic agents as able. I personally reviewed the record. Patient is interviewed and examined at bedside. Patient's care is coordinated with Nely Johnson PA-C. Please refer to the documentation above for details of patient's presentation and for discussion of other issues. Subjective 64 YO female with right hydronephrosis, questionable distal right ureteral stone, renal colic, LENCHO, hematuria. Unfortunately her right flank pain is persisting this morning. Reports further vomiting last evening. Continues to void spontaneously with hematuria. Review of Systems Review of Systems: Per HPI. Physical Exam Physical Exam: NAD. Resp effort normal. No JVD. Abd nondistended. A&Ox3, appropriate affect. Results & Data Vital Signs (Past 12 Hours) Vital Signs Temp Pulse Resp BP Pulse Ox 08/09/19 07:52 36.5 C 69 16 109/60 94 08/08/19 23:17 36.4 C L 70 16 120/75 93 PG Care Time/CCT Total # of Minutes Spent Total Time Spent with Patient: Total time spent is greater than 50% in coordination of care (as documented) at patient's floor/unit and/or counseling patient: (1) Vomiting Nausea presence: with nausea Vomiting Intractability: non-intractable Vomiting type: unspecified Qualified Code(s): R11.2 - Nausea with vomiting, unspecified
[2019-08-09] MEDS ORDERED: MIDAZOLAM HCL 1 MG/ML 2ML VIAL ONE (09:51)
[2019-08-09] MEDS ORDERED: PROPOFOL IV EMULSION 10 MG/ML 20 ML VIAL IV ONE (09:51)
[2019-08-09] MEDS ORDERED: fentaNYL citrate 100 MCG/2 ML VIAL ONE (09:51)
[2019-08-09] MEDS ORDERED: HYDROmorphone INJ 1 MG/ML SYRINGE IV PRN (09:57)
[2019-08-09] MEDS ORDERED: fentaNYL citrate 100 MCG/2 ML VIAL IV PRN (09:57)
[2019-08-09] MEDS ORDERED: ONDANSETRON INJ 2 MG/ML 2 ML VIAL IV PRN (09:57)
[2019-08-09] MEDS ORDERED: ePHEDrine sulfate 50 MG/ML AMP IV PRN (09:57)
[2019-08-09] MEDS ORDERED: ATROPINE SULFATE 0.1 MG/ML 10ML SYR IV PRN (09:57)
--- NOTE | 2019-08-09 09:57 | Anesthesiology Consultation ---
Date of Service August 09, 2019 Assessment & Plan (1) Encounter for pre-operative examination: History Surgery Operation Date: 08/09/19 15:30 Proposed Procedures p Cystoscopy, Right Ureteral Stent Placement - Denver Ann MD Height/Weight Height: 5 ft 6 in Weight: 140.4 kg Allergies Allergy/AdvReac Type Severity Reaction Status Date / Time cat dander Allergy Intermediate SNEEZE, Verified 08/07/19 15:20 PUFFY EYES meperidine Allergy Intermediate LOOPY, Verified 08/07/19 15:20 VOMITING Medications Home Medications Medication Instructions Recorded Confirmed Last Taken dicyclomine 20 mg PO TID #14 tab 08/03/19 08/07/19 08/07/19 naproxen 500 mg PO BID PRN 08/03/19 08/07/19 08/07/19 ondansetron HCl [Zofran] 4 mg PO Q6H PRN #14 tab 08/06/19 08/07/19 08/07/19 citalopram 20 mg PO DAILY 08/07/19 08/07/19 Unknown Active Medications Generic Name Dose Route Start Last Admin Trade Name Freq PRN Reason Stop Dose Admin Acetaminophen 650 mg 08/07/19 18:01 08/08/19 17:21 Tylenol PO 09/06/19 18:00 650 mg Q4H PRN Administration pain/fever Citalopram Hydrobromide 20 mg 08/08/19 09:00 08/09/19 08:14 Celexa PO 09/07/19 08:59 20 mg DAILY ELLA Administration Sodium Chloride 1,000 mls @ 100 mls/hr 08/07/19 18:01 08/09/19 04:13 Nss 1000ml IV 09/06/19 18:00 150 mls/hr .Q10H ELLA Administration Promethazine HCl 12.5 mg/ 50.5 mls @ 202 mls/hr 08/07/19 18:01 08/08/19 21:18 Sodium Chloride IV 09/06/19 18:00 Infused Q6H PRN Infusion Nausea And Vomiting Ondansetron HCl 4 mg 08/07/19 18:01 08/09/19 06:07 Zofran IV 09/06/19 18:00 4 mg Q6H PRN Administration Nausea Oxycodone/Acetaminophen 1 tab 08/07/19 21:16 08/09/19 05:10 Percocet 7.5/325mg PO 08/21/19 21:15 1 tab Q6H PRN Administration Pain Tamsulosin HCl 0.4 mg 08/07/19 21:00 08/08/19 22:25 Flomax PO 09/06/19 20:59 0.4 mg HS ELLA Administration NPO Date Last Intake of Fluids: 08/07/19 Time Last Intake of Fluids: 23:59 Date Last Intake of Solids: 08/07/19 Time Last Intake of Solids: 23:59 Past Medical History Medical History Right lower quadrant abdominal pain (Acute) History of hysterectomy Acute low back pain (Acute) Right upper quadrant abdominal pain (Acute) Lupus Past Family History Family History Brother COPD (chronic obstructive pulmonary disease) Mother Diabetes Other No significant family history Past Surgical History Surgical History S/P HUEY-BSO History of appendectomy Social History Smoking Status: Never smoker Do You Dip or Chew Tobacco: No Hx Alcohol Use: No Hx Substance Use: No substance use type: does not use Physical Exam Vital Signs Last Vital Signs Temp 36.5 C 08/09/19 07:52 Pulse 69 08/09/19 07:52 Resp 16 08/09/19 07:52 BP 109/60 08/09/19 07:52 Pulse Ox 94 08/09/19 07:52 Testing Laboratory Results 08/09/19 05:18 08/09/19 05:18 Urine Color Yellow 08/07/19 14:19 Urine Appearance Clear (Clear) 08/07/19 14:19 Urine pH 5.5 (4.5-7.5) 08/07/19 14:19 Ur Specific [place] 1.020 (1.000-1.030) 08/07/19 14:19 Urine Protein Negative (Negative) 08/07/19 14:19 Urine Glucose (UA) Negative (Negative) 08/07/19 14:19 Urine Ketones Negative (Negative) 08/07/19 14:19 Urine Nitrite Negative (Negative) 08/07/19 14:19 Ur Leukocyte Esterase Negative (Negative) 08/07/19 14:19 Electrocardiogram Date: 08/07/19 Normal sinus rhythm Nonspecific T wave abnormality Abnormal ECG When compared with ECG of 07-AUG-2019 21:57, Nonspecific T wave abnormality is now Present Confirmed by Roly Ivey ([id number]) on 08/08/2019 3:00:42 PM
[2019-08-09] MEDS ORDERED: IOTHALAMATE MEGLUMINE II 17.2% 250 ML VIAL ONE (09:59)
[2019-08-09] MEDS ORDERED: CIPROFLOXACIN 400 MG/200 ML BAG IV SCH (10:00)
[2019-08-09] MEDS ORDERED: CIPROFLOXACIN 400MG / 200ML D5W IV ONE (10:00)
--- NOTE | 2019-08-09 10:32 | Operative Report ---
[facility] Post Operative Report Pre & Post Diagnosis Operation Date: 08/09/19 15:30 Pre-Op Diagnosis: Right hydronephrosis, renal failure, intractable colic Post-Op Diagnosis: Right hydronephrosis, renal failure, intractable colic Anesthesia: Monitored anesthesia with sedation. Specimen sent pathology: Bladder urine after drainage of right kidney. Drains left in place: 6 [place] multilength ureteral stent on the right-hand side. Findings: Mild to moderate hydronephrosis on the right-hand side, good stent position after completion of case, debris noted after drainage of right ureter. Complications: None I identified the patient and participated in the time-out.: Yes Procedure Operation Date: 08/09/19 15:30 Actual Procedures p Cystoscopy, Right retrograde pyelogram, Right Ureteral Stent Placement(Right) - Denver Ann MD Brief history: Patient is a 64-year-old inpatient who is been seen for right- sided hydronephrosis, renal failure and intractable colic his symptoms. There is a question of a right distal ureteral stone on CT scan imaging. After discussion of risks and benefits of various forms of management she is being brought down today acutely for right ureteral stent placement for renal decompression. Please see urology consultation and progress notes for further details. Patient is covered with intravenous ciprofloxacin for antibiotics and SCDs were used for DVT prophylaxis. Procedure: Patient was properly identified and brought into the operative suite after identification of appropriate consent of the chart. Monitored anesthesia care with sedation was initiated and patient was prepped and draped in standard fashion for this procedure. Full timeout procedure was followed. 22 [place]ian rigid cystoscope was introduced into the bladder under direct visualization and patient was appreciated to have a grade 2 cystocele. Mild to moderate trabeculation of the bladder was appreciated with no intravesical tumors, susu llary masses or calculi. Ureteral orifices were appreciated in the normal anatomic location bilaterally. Gentle retrograde pyelography was performed of the right-hand side demonstrating mild to moderate right ureteral fullness and dilation of the renal pelvis. This was followed by a sensor tip wire which was advanced up to the level of the right kidney without difficulties. Drainage of cloudy urine with old debris was appreciated after this was passed. A 6 [place] multilength catheter was introduced up to the level of the right kidney with redundant coils being present at the level of the renal pelvis on fluoroscopy and within the bladder under direct visualization. Urine aliquot was collected and sent for urine culture after drainage of the right kidney. Bladder was drained and cystoscope was removed. Anesthesia was reversed and patient was transferred to the recovery room in stable condition. Follow-up CARE: Patient will be readmitted to the floor for further management per the hospitalist service. Will require outpatient follow-up with our service. Surgeon Denver Ann MD Ep Tech None Estimated Blood Loss 0 Findings Consistent with Post-Op Diagnosis Specimens Urine for culture and sensitivity after drainage of right kidney Description of Procedure Cystoscopy, right retrograde pyelography, right ureteral stent placement I attest to the content of the Intraoperative Record and any orders documented therein. Any exceptions are noted below.
--- NOTE | 2019-08-09 10:53 | Anesthesiology Progress Note ---
Date of Service August 09, 2019 Anesthesia Post Procedure Vital Signs Vital Signs: Temp Pulse Resp BP Pulse Ox 08/09/19 10:08 37.4 C 64 18 112/87 94 08/09/19 07:52 36.5 C 69 16 109/60 94 08/08/19 23:17 36.4 C L 70 16 120/75 93 08/08/19 15:03 36.5 C 83 17 113/77 93 Pain Intensity Abdomen: Pain Intensity: 5 Transfer of Care Handoff Completed per policy Notes Mental Status: alert / awake / arousable and participated in evaluation Patient Amnestic to Procedure: Yes Nausea / Vomiting: adequately controlled Pain: adequately controlled Airway Patency, RR, SpO2: stable & adequate BP & HR: stable & adequate Hydration State: stable & adequate Anesthetic Complications: no major complications apparent and Pt Satisfied with anesthetic care
--- NOTE | 2019-08-09 11:24 | Fluoroscopy Report ---
FL retrograde includes kub HISTORY: CYSTO/STENT FLUOROSCOPY TIME: 23 seconds. FINDINGS: 6 fluoroscopic spot images were submitted for review. Retrograde opacification of the right renal collecting system followed by placement of a right ureteral stent. The ureteral stent appears in good position. IMPRESSION: Fluoroscopy provided for right ureteral stent placement which appears in good position.. Electronically signed by: Wyatt Wooten M.D. 08/09/2019 11:23 AM
[2019-08-09] MEDS: PROMETHAZINE HCL 12.5 MG in SODIUM CHLORIDE 0.9% 50 ML IV PRN (15:04)
[2019-08-09] MEDS: TAMSULOSIN HCL 0.4 MG CAP PO SCH (21:35)
[2019-08-10 05:34] LABS: Hematocrit (blood only) 32.7 % (37-47); Hemoglobin 11.1 g/dL (12.0-16.0); Mean Corpuscular Hemoglobin 29.1 pg (25-34); Mean Corpuscular Hgb Conc 33.9 g/dL (32-36); Mean Corpuscular Volume 85.8 fL (80-100); Mean Platelet Volume 10.5 fL (7.4-10.4); Platelet Count 248 K/uL (130-400); RDW Coefficient of Variation 13.3 % (11.5-14.5); RDW Standard Deviation 41.8 fL (36.4-46.3); Red Blood Count 3.81 M/uL (4.2-5.4); White Blood Count 6.73 K/uL (4.8-10.8)
[2019-08-10 05:59] LABS: BUN Creatinine Ratio 8.1 (10-20); Calcium 8.5 mg/dl (8.5-10.1); Creatinine Clr Calc Pharmacy 67.9 ml/min; Est GFR (African American) 55.7; Potassium 3.8 mmol/L (3.5-5.1)
[2019-08-10] MEDS ORDERED: CIPROFLOXACIN 400 MG/200 ML BAG IV SCH (06:00)
--- NOTE | 2019-08-10 07:26 | Hospitalist Progress Note ---
Date of Service August 10, 2019 Assessment & Plan (1) Right lower quadrant abdominal pain: (2) Kidney stone on right side: Suspect RLQ secondary to nephrolithiasis. 08/07/19 CT abd/pelvis: Moderate right renal hydroureteronephrosis. This appears to be secondary to a very poorly defined 1.5 mm right ureterovesical junction calculus. Prior urine culture shows contamination. 08/09/19 had Cystoscopy, Right retrograde pyelogram, Right Ureteral Stent Placement by urology - Dr Denver Ann Since procedure having hematuria. Denies dysuria No further Abdominal pain. No Leukocytosis. No fever Continue Tamsulosin Has not required Pyridium prn Continue to strain urine Has not needed oxycodone since prior to procedure on 08/09/19 Urology consulted, appreciate recommendations (3) Vomiting: Possibly secondary to pain, renal stone 08/07/19 had reported episode of reddish liquid in her vomitus after drinking cranberry juice No further red vomit or hematemesis during admission Tolerated liquid diet on 08/09/19 after urology procedure. 08/09/19 Dinner ate a few bites of regular diet Continued nausea (4) LENCHO (acute kidney injury): LENCHO has resolved Initial Creatinine on admission was 1.98 on 08/07/19 Creatinine has trended down Today creatinine 1.18 Received IVF since admission IV infiltrated overnight 08/10/19 and IVF were placed on hold Continue to avoid NSAIDs and other nephrotoxic agents when possible Monitor renal functions (5) Elevated blood pressure reading: No dx HTN. Reports SBP's usually low in the 90's Pt with variable BP's during admission. Overnight and this am BP: 170/77. Probable secondary to nausea and anxiety. No current pain Monitor BP, may need to add BP agent, however anticipate will decrease (6) Depression: Continue home citalopram (7) Lupus: Recent flare reported 3 weeks ago including skin rash. Using topical agents with improvement. Does not see manufacturing process technician Continue to monitor (8) DVT prophylaxis: SCDs Disposition: Plan for discharge home today if tolerating diet. Pt was seen and care coordinated with Dr Lopez. See addendum Supervising Physician Co-Signing Physician Notes Patient is seen and examined at bedside. Doing much better today. States having mild nausea but denies any vomiting. Abdominal pain resolved. Denies any chest pain, shortness of breath, dizziness. Had cystoscopy, right retrograde pyelogram, right ureteral stent placement by Dr. Ann yesterday. Still has some hematuria. On exam patient is morbidly obese, no apparent distress, normocephalic atraumatic, lungs are clear to auscultation, S1-S2, no murmur, abdomen soft, nontender, no guarding or rigidity, grossly nonfocal neurological deficits, trace pedal edema. Patient is admitted for management of right hydroureteronephrosis, right ureteral stone and LENCHO. S/P right total stent placement PO D#1. Continue IV fluids, strain urine, pain control, Flomax. Appreciate Urology input. Creatinine levels improved with IV fluids. Plan to discharge home today. Advised to follow-up with urology, primary care physician upon discharge. I personally reviewed the record. Patient is interviewed and examined at bedside. Patient's care is coordinated with Nely Arellano. Please refer to the documentation above for details of patient's presentation and for discussion of other issues. Subjective Pt seen and examined. Lying in bed. No further abdominal pain. States still with nausea. Ate a few bites of regular diet last night but pt states was scared to eat as she afraid she would have recurrent vomiting. No vomiting. Urinating without difficulty. Having hematuria. Denies dysuria. Passing flatus. No BM. Denies fever/chills, HAMMONDS, dizziness, CP, SOB, weakness, extremity edema, rashes. Review of Systems Review of Systems: All systems reviewed & are unremarkable except as noted in HPI & below Physical Exam Physical Exam: General: no acute distress, obese Head: normocephalic, atraumatic Eyes: conjunctiva non-injected, anicteric ENT: normal inspection external ears, nose, mucous membranes moist Neck: supple, trachea midline Lungs: clear, no respiratory distress, no wheezing/rhonchi/rales CV: RRR, systolic murmur, no pitting pretibial edema Abd: normal BS, soft, non-tender to palpation, no flank or CVA tenderness Ext: no cyanosis, no calf tenderness Neuro: A&O x 3, no focal deficits noted, anxious affect Skin: warm, dry Results & Data Vital Signs (Past 12 Hours) Vital Signs Temp Pulse Pulse Resp BP BP Pulse Ox 08/10/19 03:07 36.8 C 76 16 170/77 H 97 08/09/19 23:28 37.3 C 70 16 170/95 H 95 Laboratory Results Short CBC 08/10/19 Range/Units 04:49 WBC 6.73 (4.8-10.8) K/uL Hgb 11.1 L (12.0-16.0) g/dL Hct 32.7 L (37-47) % Plt Count 248 (130-400) K/uL BMP 08/10/19 04:49 Sodium 141 Potassium 3.8 Chloride 110 H Carbon Dioxide 25 BUN 10 Creatinine 1.18 Glucose 107 H Calcium 8.5 (1) Vomiting Nausea presence: with nausea Vomiting Intractability: non-intractable Vomiting type: unspecified Qualified Code(s): R11.2 - Nausea with vomiting, unspecified
--- NOTE | 2019-08-10 08:03 | Anesthesiology Progress Note ---
Date of Service August 10, 2019 Anesthesia Post Procedure Vital Signs Vital Signs: Temp Pulse Pulse Pulse Resp BP BP 08/10/19 07:50 37.5 C 75 16 189/126 H 08/10/19 03:07 36.8 C 76 16 170/77 H 08/09/19 23:28 37.3 C 70 16 170/95 H 08/09/19 19:08 36.6 C 70 16 147/87 H 08/09/19 15:39 36.4 C L 63 16 148/98 H 08/09/19 14:30 36.6 C 63 16 168/87 H 08/09/19 13:25 74 16 131/83 08/09/19 12:34 69 16 155/89 H 08/09/19 11:55 64 16 135/81 08/09/19 11:25 36.6 C 71 18 140/77 08/09/19 11:00 36.6 C 74 21 142/75 H 08/09/19 10:50 73 19 151/68 H 08/09/19 10:42 37.1 C 80 26 H 146/73 H 08/09/19 10:08 37.4 C 64 18 112/87 Pulse Ox 08/10/19 07:50 93 08/10/19 03:07 97 08/09/19 23:28 95 08/09/19 19:08 95 08/09/19 15:39 95 08/09/19 14:30 96 08/09/19 13:25 99 08/09/19 12:34 97 08/09/19 11:55 97 08/09/19 11:25 97 08/09/19 11:00 93 08/09/19 10:50 97 08/09/19 10:42 97 08/09/19 10:08 94 Pain Intensity Abdomen: Pain Intensity: 5 Notes Mental Status: alert / awake / arousable and participated in evaluation Patient Amnestic to Procedure: Yes Nausea / Vomiting: adequately controlled Pain: adequately controlled Airway Patency, RR, SpO2: stable & adequate BP & HR: stable & adequate Hydration State: stable & adequate Anesthetic Complications: no major complications apparent and Pt Satisfied with anesthetic care
[2019-08-10] MEDS: CITALOPRAM 20 MG TAB PO SCH (08:08)
[2019-08-10] MEDS: ONDANSETRON INJ 2 MG/ML 2 ML VIAL IV PRN (08:09)
--- NOTE | 2019-08-10 12:19 | Discharge Summary ---
Date of Service August 10, 2019 Admission HPI Per Admitting Provider 64-year-old female presents with severe right lower quadrant pain that has been present for the past 4 to 5 days, associated with chills and of variable intensity. She was initially seen in the ER on 08/03 and thought to have a UTI. She was sent home on a course of Keflex. However the culture was negative and she was back in the ER on 08/05. At that time she was having intractable vomiting unable to keep any food or medication down in addition to persistent pain. She received 1 mg of IV Dilaudid and Zofran, feeling well enough to go home. She was sent home with Graceyl. She returns again this evening with persistent abdominal pain, vomiting and nausea. She has been unable to taking any food or water and is now becoming generally weak. She reports her last meal was Tuesday (5 days ago) and that her last BM was soft and formed and was this morning. She reported drinking cranberry juice earlier today and subsequently vomiting a dark red liquid a few hours later. She has had no vomiting since being on the floor. She feels the vomiting is in response to pain that is uncontrolled. In the ER she received Dilaudid 0.5 mg IV, famotidine 20 mg IV, Zofran 4 mg IV, 1 L of normal saline, Reglan 5 mg IV x2 doses. A repeat CT of her abdomen pelvis revealed no evidence of obstruction with moderate right renal hydroureteronephrosis likely secondary to a poorly defined 1.5 mm right ureterovesical junction calculus. The clinical picture fits a kidney stone and she was admitted to the floor placed on normal saline at 150 cc an hour, started on tamsulosin and given additional antiemetics and pain medication. She is feeling better at this point. However, she is still concerned about trying food. Work-up incidentally revealed a normal lipase and normal LFTs. She reports her pain is approximately 4 out of 10. There is no radiation of the pain and there are no clear precipitating or alleviating factors aside from medications that are IV. Incidentally she does report having lupus and suffer ing a recent lupus flare for the last 3 weeks. Her lupus flares are skin rashes on her arms. She reports managing these with naproxen and skin lotions and feels that her current rash is improved. She also reports evidence of gross hematuria a couple of months ago for which she was referred to urology but has not been able to establish care. Admission Exam Per Admitting Provider CONSTITUTIONAL: obese, vitals as above, generally well-appearing EYES: normal conjunctivae, no scleral icterus ENT: MMM RESPIRATORY: clear to auscultation bilaterally, no crackles, rales or wheezes, normal respiratory effort CARDIOVASCULAR: regular rate and rhythm, 3/6 SAMM across precordium, no JVD, no peripheral edema GASTROINTESTINAL: normal bowel sounds, soft, nondistended, TTP in RLQ>RUQ. No CVA tenderness. MUSCULOSKELETAL: strength 5/5 throughout, head is normocephalic and atraumatic SKIN: warm and dry, +scaly erythematous rash on left distal arm on the extensor surface. NEUROLOGIC: No facial palsy, no dysarthria. CN 2-12 grossly intact, normal cognition, normal speech, no gross deficits. PSYCHIATRIC: alert cooperative and oriented to person, place and time. Principal Diagnosis Hydronephrosis Right Kidney, Renal Colic, LENCHO Discharge Exam BP 159/83 at 11:23AM General: no acute distress, obese Head: normocephalic, atraumatic Eyes: conjunctiva non-injected, anicteric ENT: normal inspection external ears, nose, mucous membranes moist Neck: supple, trachea midline Lungs: clear, no respiratory distress, no wheezing/rhonchi/rales CV: RRR, systolic murmur, no pitting pretibial edema Abd: normal BS, soft, non-tender to palpation, no flank or CVA tenderness Ext: no cyanosis, no calf tenderness Neuro: A&O x 3, no focal deficits noted, anxious affect Skin: warm, dry Discharge Data Allergies Allergy/AdvReac Type Severity Reaction Status Date / Time cat dander Allergy Intermediate SNEEZE, Verified 08/07/19 15:20 PUFFY EYES meperidine Allergy Intermediate LOOPY, Verified 08/07/19 15:20 VOMITING Consultations Consult Urology - Dr Ann Hydronephrosis of right kidney, renal colic, LENCHO Cystoscopy with right ureteral stent placement Recommends continued Flomax HS Will schedule follow up at urology office next week, will call pt to schedule. Procedures Performed Operation Date: 08/09/19 15:30 Actual Procedures p Right Ureteral Stent Placement(Right) - Denver Ann MD s Cystoscopy, Right retrograde pyelogram(Right) - Denver Ann MD Ordered Studies 08/07/19 14:58 CT abd pelvis wo con Stat IMPRESSION: 1. Moderate right renal hydroureteronephrosis. 2. This appears to be secondary to a very poorly defined 1.5 mm right ureterovesical junction calculus. 3. Study is otherwise unremarkable. 08/09/19 [place] retrograde includes kub Routine IMPRESSION: Fluoroscopy provided for right ureteral stent placement which appears in good position. Hospital Course (1) Right lower quadrant abdominal pain: (2) Kidney stone on right side: Suspect RLQ secondary to nephrolithiasis. 08/07/19 CT abd/pelvis: Moderate right renal hydroureteronephrosis. This appears to be secondary to a very poorly defined 1.5 mm right ureterovesical junction calculus. Prior urine culture shows contamination. 08/09/19 had Cystoscopy, Right retrograde pyelogram, Right Ureteral Stent Placement by urology - Dr Denver Ann Since procedure having hematuria. Denies dysuria No further Abdominal pain. No Leukocytosis. No fever Continue Tamsulosin Has not required Pyridium prn Continue to strain urine Has not needed oxycodone since prior to procedure on 08/09/19 Urology consulted, appreciate recommendations (3) Vomiting: Possibly secondary to pain, renal stone 08/07/19 had reported episode of reddish liquid in her vomitus after drinking cranberry juice No further vomiting or hematemesis during admission Tolerated liquid diet on 08/09/19 after urology procedure. 08/09/19 Dinner ate a few bites of regular diet Advance diet as tolerated (4) LENCHO (acute kidney injury): LENCHO has resolved Initial Creatinine on admission was 1.98 on 08/07/19 Creatinine has trended down Today creatinine 1.18 Probable secondary to dehydration, ureteral stone Received IVF NSAIDs and other nephrotoxic agents were avoided (5) Elevated blood pressure reading: No dx HTN. Reports SBP's usually low in the 90's Pt with variable BP's during admission, with high 170/77 this am. Probable secondary to nausea and anxiety. No current pain Repeat BP 159/83 at 11:23 AM prior to discharge Monitor BP (6) Depression: Stable Continue home citalopram (7) Lupus: Recent flare reported 3 weeks ago including skin rash. Using topical agents with improvement. 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 No problems during admission (8) DVT prophylaxis: Pt had SCDs for VTE prophylaxis during hospitalization Total Time Total Time Spent Total Time Spent (In Minutes): 40 MINUTES Discharge Plan Discharge Items Patient Disposition: Home - Self-Care Reason For Visit: URETERAL COLIC,INTRACTABLE VOMITING Discharge Diagnosis: Right lower abdominal pain and nausea caused by kidney stone Condition on Discharge: Fair Activity: Resume your previous activity Exercise/Sports: Gradually increase as tolerated Non-emergency contact: Primary Care Provider and Urologist Call non-emergency contact if: you have any medication questions, your symptoms worsen, your pain is not controlled, your pain is concerning for you, you have a fever and your temperature is above 101 Follow-up/Referrals: Diogenes Wang MD [Primary Care Provider] - 08/14/19 11:25 am Diet: Regular Diet Comment: Can eat bland diet and increase to regular diet as tolerated Addtl Attending Provider Instructions: You had a stent placed in the ureter (the tube from your kidney to the bladder) on the right side. You may have some noticed blood in your urine. MEDICATION CHANGES: Take Flomax at night everyday until follow up with urology (Prescription sent to pharmacy) You can use Zofran (ondansetron) 1 tab every 6 hours as needed for nausea OR You can use Phenergan (promethazine) 1 tab every 6 hours as needed for nausea (You have meds at home) CONTINUE HOME MEDICATIONS: Citalopram 20mg daily SUMMARY OF TEST RESULTS: Initially your kidney function labs showed some abnormality consistent with injury. Once you were rehydrated with IV fluids and had the stent placed they have improved. RECOMMENDATIONS FOR FOLLOW-UP: Have Blood work completed in the next week to recheck your kidney functions. Follow up with PCP - Dr Wang on 08/14/19 at 11: 25AM at [facility] office will be calling you with follow up appointment for next week OTHER INSTRUCTIONS: Isabela diet, followed by regular diet as tolerated Seek medical attention if you have: * temperature above 101 * chest pain or trouble breathing * abdominal pain, nausea, vomiting * diarrhea, dark stools or bloody stools * any unanswered questions or concerns Call 911 if symptoms are severe. Please take good care of yourself. Call if you have any questions or problems. You can reach a [facility] hospitalist on duty at [facility] 24 hours a day by calling [phone]. Pending Studies at Discharge: No Stand-Alone Forms: My [facility], Work/School Release (Inpt) Medications and DC Order Prescriptions: New tamsulosin 0.4 mg Capsule 0.4 mg PO HS 7 Days Qty: 7 RF: 0 Continued citalopram 20 mg tablet 20 mg PO DAILY RF: 0 Discontinued ondansetron HCl [Zofran] 4 mg tablet 4 mg PO Q6H PRN (Reason: nausea and vomiting) Qty: 14 RF: 0 naproxen 500 mg tablet 500 mg PO BID PRN (Reason: Pain) RF: 0 dicyclomine 20 mg tablet 20 mg PO TID Qty: 14 RF: 0 Discharge Orders: Discharge Order (Routine); Ordered 08/10/19 Ordered By: Nely Johnson Admission Data Admit Date/Time: 08/07/19 17:00 Attending Provider: Lobo Lopez Admit Provider: Pina Carpio Primary Care Provider: Diogenes Wang Other Providers: Pina Carpio ; Denver Ann I. Other Interventions: Discharge Summary Assessment (RN) Last Done: 08/10/19 12:34 DC Date/Time DO NOT enter until pt leaves facility: 08/10/19 13:14
== END 2019-08-10 13:14 | disposition home or self-care (01) | DRG 661 ==
LOC: ED 12:47 → SUATTDRO 17:00 → 3W 17:00